=== PATIENT | male | born 1950 | race African-American/Black ===

== ENCOUNTER 2017-03-11 09:32 | Observation (INO) | payer MEDICARE, MEDICAID ==
[~2017-03-11] VITALS: Ht 190.5 cm; Wt 97.5 kg
[2017-03-11 09:51] VITALS: BP 176/105
[2017-03-11] MEDS ORDERED: Famotidine 20 MG/ 2ML VIAL IVP ONE (10:15)
[2017-03-11] MEDS ORDERED: Nulytely 4L ORAL ONE (10:15)
[2017-03-11 10:36] VITALS: BP 123/77
[2017-03-11] MEDS ORDERED: NKM (10:46)
[2017-03-11 10:49] LABS: BASOPHILS % (AUTO) 0.9 % (0.0-2.0); EOSINOPHILS % (AUTO) 0.8 % (0.0-3.0); LYMPHOCYTES % (AUTO) 19.7 % (20.0-45.0); MEAN CORPUSCULAR HEMOGLOBIN 30.1 PG (27.0-31.0); MEAN CORPUSCULAR HGB CONC 33.5 G/DL (32.0-36.0); MEAN CORPUSCULAR VOLUME 90 FL (80-99); MEAN PLATELET VOLUME 9.1 FL (6.5-10.1); NEUTROPHILS % (AUTO) 70.7 % (45.0-75.0); PLATELET COUNT 258 K/UL (150-450); RED BLOOD COUNT 4.25 M/UL (4.70-6.10); RED CELL DISTRIBUTION WIDTH 11.7 % (11.6-14.8); WHITE BLOOD COUNT 5.8 K/UL (4.8-10.8)
[2017-03-11 10:56] LABS: APPEARANCE,URINE CLEAR; KETONES,URINE NEGATIVE (NEGATIVE); LEUKOCYTE ESTERASE ,URINE NEGATIVE (NEGATIVE); NITRITE,URINE NEGATIVE (NEGATIVE); PH,URINE 7 (4.5-8.0); PROTEIN,URINE NEGATIVE (NEGATIVE); UROBILINOGEN,URINE NORMAL MG/DL (0.0-1.0)
[2017-03-11 10:59] LABS: ALANINE AMINOTRANSFERASE 16 U/L (3-41); ALBUMIN/GLOBULIN RATIO 1.1 (1.0-2.7); ANION GAP 11 (5-15); ASPARTATE AMINO TRANSFERASE 26 U/L (5-40); CALCIUM 10.1 mg/dL (8.6-10.2); CARBON DIOXIDE 25 mEQ/L (20-30); CHLORIDE 104 mEQ/L (98-107); CREATININE 0.8 mg/dL (0.7-1.2); GLOMERULAR FILTRATION RATE > 60 mL/min (>60); HEMOLYSIS 1; LIPASE 10 U/L (< 60); POTASSIUM 3.8 mEQ/L (3.4-4.9); SODIUM 140 mEQ/L (135-145); TOTAL PROTEIN 8.2 g/dL (6.6-8.7)
[2017-03-11 11:02] LABS: TROPONIN I < 0.30 ng/mL (<=0.30)
[2017-03-11] MEDS ORDERED: Morphine Sulfate 4mg/ml Inj IVP ONE (12:45)
[2017-03-11] MEDS ORDERED: MYRBETRIQ25 MG PO (13:03)
[2017-03-11] MEDS ORDERED: METOPROLOL SUCC50 MG ORAL (13:03)
[2017-03-11] MEDS ORDERED: MOVANTIK25 MG PO (13:03)
[2017-03-11] MEDS ORDERED: BISACODYL5 MG ORAL (13:03)
[2017-03-11] MEDS ORDERED: MOVIPREP POWDE1 EACH PO (13:03)
[2017-03-11] MEDS ORDERED: EVZIO2 MG/0.4 M IJ (13:03)
[2017-03-11] MEDS ORDERED: IBUPROFEN600 MG ORAL (13:03)
[2017-03-11] MEDS ORDERED: DIOVAN320 MG ORAL (13:03)
[2017-03-11] MEDS ORDERED: ATORVASTATIN CA20 MG ORAL (13:03)
[2017-03-11] MEDS ORDERED: CIALIS5 MG PO (13:03)
[2017-03-11] MEDS ORDERED: TAMSULOSIN HCL0.4 MG ORAL (13:03)
[2017-03-11] MEDS ORDERED: PAMELOR25 MG ORAL (13:03)
[2017-03-11] MEDS ORDERED: OXYCODONE HCL30 MG ORAL (13:03)
[2017-03-11 13:19] VITALS: BP 141/84
--- NOTE | 2017-03-11 13:23 | Emergency Room Report ---
History of Present Illness General Chief Complaint: Pain Source: Patient Present Illness HPI Patient is a 66-year-old male who presented after increased abdominal pain. The patient had recently been seen by GI was referred to the hospital for further evaluation.The patient gradual onset of symptoms. Patient currently takes pain medication chronically. He reported having worsening pain. Pain was sharp in nature. The patient had previously been scheduled for operation GI procedure. Allergies: Coded Allergies: No Known Allergies (Unverified , 02/25/17) Patient History Past Medical History: see triage record Reviewed Nursing Documentation: PMH: Agreed, PSxH: Agreed Nursing Documentation-PMH Past Medical History: No History, Except For Hx Cardiac Problems: No - spinal surgery /left ankle and foot surgery and abd surgery Hx Hypertension: Yes Hx COPD: No - bronchitis Review of Systems All Other Systems: negative except mentioned in HPI Physical Exam Vital Signs Date Time Temp Pulse Resp B/P (MAP) Pulse Ox O2 Delivery O2 Flow Rate FiO2 03/11/17 09:51 97.2 81 12 176/105 94 Room Air Sp02 EP Interpretation: reviewed, normal General Appearance: normal inspection, well appearing, no apparent distress, alert, GCS 15 Head: atraumatic ENT: normal ENT inspection, hearing grossly normal, normal voice Neck: normal inspection, full range of motion, supple, no bony tend Respiratory: normal inspection, lungs clear, normal breath sounds, no respiratory distress, no retraction, no wheezing Cardiovascular #1: regular rate, rhythm, no edema Gastrointestinal: normal inspection, normal bowel sounds, non tender, soft, no guarding, no hernia Genitourinary: no CVA tenderness Musculoskeletal: normal inspection, back normal, normal range of motion Neurologic: normal inspection, alert, oriented x3, responsive, drawing in machine tender helper III-XII nml as tested, speech normal Psychiatric: normal inspection, judgement/insight normal, mood/affect normal Skin: normal inspection, normal color, no rash Medical Decision Making Diagnostic Impression: Primary Impression: Abdominal pain Additional Impression: Intractable abdominal pain ER Course Patient presented for abdominal pain. Differential diagnoses included ischemic bowel, appendicitis, perforated viscus, abdominal aortic aneurysm, inferior myocardial infarction, viral gastroenteritis Because of complexity of patient's case laboratory testing and imaging studies were ordered. The patient was noted to have evidence of anemia. Patient was discussed with Dr. Wild for GI consult. Dr. Jarvis Caballero was contacted for inpatient management due to severity of abdominal pain patient was given IV morphine. Labs Test 03/11/17 10:20 White Blood Count 5.8 K/UL (4.8-10.8) Red Blood Count 4.25 M/UL (4.70-6.10) Hemoglobin 12.8 G/DL (14.2-18.0) Hematocrit 38.1 % (42.0-52.0) Mean Corpuscular Volume 90 FL (80-99) Mean Corpuscular Hemoglobin 30.1 PG (27.0-31.0) Mean Corpuscular Hemoglobin Concent 33.5 G/DL (32.0-36.0) Red Cell Distribution Width 11.7 % (11.6-14.8) Platelet Count 258 K/UL (150-450) Mean Platelet Volume 9.1 FL (6.5-10.1) Neutrophils (%) (Auto) 70.7 % (45.0-75.0) Lymphocytes (%) (Auto) 19.7 % (20.0-45.0) Monocytes (%) (Auto) 8.0 % (1.0-10.0) Eosinophils (%) (Auto) 0.8 % (0.0-3.0) Basophils (%) (Auto) 0.9 % (0.0-2.0) Urine Color Pale yellow Urine Appearance Clear Urine pH 7 (4.5-8.0) Urine Specific [place] 1.010 (1.005-1.035) Urine Protein Negative (NEGATIVE) Urine Glucose (UA) Negative (NEGATIVE) Urine Ketones Negative (NEGATIVE) Urine Occult Blood Negative (NEGATIVE) Urine Nitrite Negative (NEGATIVE) Urine Bilirubin Negative (NEGATIVE) Urine Urobilinogen Normal MG/DL (0.0-1.0) Urine Leukocyte Esterase Negative (NEGATIVE) Sodium Level 140 mEQ/L (135-145) Potassium Level 3.8 mEQ/L (3.4-4.9) Chloride Level 104 mEQ/L (98-107) Carbon Dioxide Level 25 mEQ/L (20-30) Anion Gap 11 (5-15) Blood Urea Nitrogen 8 mg/dL (7-23) Creatinine 0.8 mg/dL (0.7-1.2) Estimat Glomerular Filtration Rate > 60 mL/min (>60) Glucose Level 107 mg/dL (74-106) Calcium Level 10.1 mg/dL (8.6-10.2) Total Bilirubin 0.4 mg/dL (0.0-1.2) Aspartate Amino Transf (AST/SGOT) 26 U/L (5-40) Alanine Aminotransferase (ALT/SGPT) 16 U/L (3-41) Alkaline Phosphatase 71 U/L (40-129) Troponin I < 0.30 ng/mL (<=0.30) Total Protein 8.2 g/dL (6.6-8.7) Albumin 4.4 g/dL (3.5-5.2) Globulin 3.8 g/dL Albumin/Globulin Ratio 1.1 (1.0-2.7) Lipase 10 U/L (< 60) Last Vital Signs Date Time Temp Pulse Resp B/P (MAP) Pulse Ox O2 Delivery O2 Flow Rate FiO2 03/11/17 13:19 97.2 71 18 141/84 96 Room Air Status: unchanged Disposition: ADMITTED INPATIENT Condition: Serious Referrals: CHEYENNE WILD (PCP) Declan Mckeon Mar 11, 2017 13:23
[2017-03-11] MEDS ORDERED: Morphine Sulfate 4mg/ml Inj IVP PRN ×2 (14:45→19:00)
[2017-03-11 16:00] VITALS: BP 150/93
[2017-03-11] MEDS: Metoprolol Succinate XL 50mg tab ORAL SCH (17:38)
--- NOTE | 2017-03-11 18:50 | History & Physical ---
History and Physical History & Physicial Dictated for Int Med-no. [id number]. SANTIAGO SILVERMAN Mar 11, 2017 18:50
[2017-03-11 19:56] LABS: BASOPHILS % (AUTO) 1.6 % (0.0-2.0); EOSINOPHILS % (AUTO) 1.1 % (0.0-3.0); LYMPHOCYTES % (AUTO) 28.4 % (20.0-45.0); MEAN CORPUSCULAR HEMOGLOBIN 31.2 PG (27.0-31.0); MEAN CORPUSCULAR HGB CONC 34.7 G/DL (32.0-36.0); MEAN CORPUSCULAR VOLUME 90 FL (80-99); MEAN PLATELET VOLUME 8.9 FL (6.5-10.1); MONOCYTES % (AUTO) 11.6 % (1.0-10.0); NEUTROPHILS % (AUTO) 57.4 % (45.0-75.0); PLATELET COUNT 223 K/UL (150-450); RED BLOOD COUNT 4.02 M/UL (4.70-6.10); RED CELL DISTRIBUTION WIDTH 11.7 % (11.6-14.8); WHITE BLOOD COUNT 6.5 K/UL (4.8-10.8)
[2017-03-11 20:00] VITALS: BP 160/94
[2017-03-11] MEDS: Tamsulosin 0.4mg cap ORAL SCH (20:26)
[2017-03-11 21:26] VITALS: BP 160/94
[2017-03-12] VITALS (13 sets, daily range): BP systolic 135–164; BP diastolic 82–108
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
[2017-03-12] MEDS ORDERED: Fleet's Enema 133ml RECTAL ONE (06:00)
[2017-03-12 07:43] LABS: BASOPHILS % (AUTO) 1.3 % (0.0-2.0); EOSINOPHILS % (AUTO) 1.5 % (0.0-3.0); MEAN CORPUSCULAR HEMOGLOBIN 30.5 PG (27.0-31.0); MEAN CORPUSCULAR HGB CONC 33.3 G/DL (32.0-36.0); MEAN CORPUSCULAR VOLUME 92 FL (80-99); MEAN PLATELET VOLUME 8.6 FL (6.5-10.1); MONOCYTES % (AUTO) 8.6 % (1.0-10.0); NEUTROPHILS % (AUTO) 57.7 % (45.0-75.0); PLATELET COUNT 246 K/UL (150-450); RED BLOOD COUNT 4.18 M/UL (4.70-6.10); RED CELL DISTRIBUTION WIDTH 11.9 % (11.6-14.8)
[2017-03-12 08:05] LABS: INR 1.1 (0.9-1.1)
--- NOTE | 2017-03-12 08:22 | Anethesia Preoperative Eval ---
Anesthesia Pre-op PMH/ROS General Date of Evaluation: Mar 12, 2017 Time of Evaluation: 08:19 Anesthesiologist: anahi ASA Score: ASA 3 Mallampati Score Class I : Soft palate, uvula, fauces, pillars visible Class II: Soft palate, uvula, fauces visible Class III: Soft palate, base of uvula visible Class IV: Only hard plate visible Mallampati Classification: Class II Surgeon: rubi Diagnosis: abdominal pain Surgical Procedure: egd/colonoscopy Anesthesia History: none Social History: smoking - former Family History: no anesthesia problems Allergies: Coded Allergies: No Known Allergies (Unverified , 02/25/17) Medications: see eMAR Past Medical History Cardiovascular: Reports: HTN Pulmonary: Reports: COPD PSxH Narrative: spinal sx, lft ankle and foot sx, abdominal sx, Anesthesia Pre-op Phys. Exam Physician Exam Last Vital Signs Date Time Temp Pulse Resp B/P (MAP) Pulse Ox O2 Delivery O2 Flow Rate FiO2 03/12/17 04:50 97.7 62 20 142/82 95 Room Air Constitutional: NAD Neurologic: CN 2-12 intact Cardiovascular: RRR Respiratory: CTA Gastrointestinal: S/NT/ND Airway Exam Mallampati Score: Class II MO: full Neck: supple TMD: 2fb ROM: full Teeth: missing Anesthesia Pre-op A/P Labs Hematology Test 03/11/17 10:20 03/11/17 19:38 03/12/17 04:45 White Blood Count 5.8 K/UL (4.8-10.8) 6.5 K/UL (4.8-10.8) 6.0 K/UL (4.8-10.8) Red Blood Count 4.25 M/UL (4.70-6.10) L 4.02 M/UL (4.70-6.10) L 4.18 M/UL (4.70-6.10) L Hemoglobin 12.8 G/DL (14.2-18.0) L 12.6 G/DL (14.2-18.0) L 12.7 G/DL (14.2-18.0) L Hematocrit 38.1 % (42.0-52.0) L 36.2 % (42.0-52.0) L 38.3 % (42.0-52.0) L Mean Corpuscular Volume 90 FL (80-99) 90 FL (80-99) 92 FL (80-99) Mean Corpuscular Hemoglobin 30.1 PG (27.0-31.0) 31.2 PG (27.0-31.0) H 30.5 PG (27.0-31.0) Mean Corpuscular Hemoglobin Concent 33.5 G/DL (32.0-36.0) 34.7 G/DL (32.0-36.0) 33.3 G/DL (32.0-36.0) Red Cell Distribution Width 11.7 % (11.6-14.8) 11.7 % (11.6-14.8) 11.9 % (11.6-14.8) Platelet Count 258 K/UL (150-450) 223 K/UL (150-450) 246 K/UL (150-450) Mean Platelet Volume 9.1 FL (6.5-10.1) 8.9 FL (6.5-10.1) 8.6 FL (6.5-10.1) Neutrophils (%) (Auto) 70.7 % (45.0-75.0) 57.4 % (45.0-75.0) 57.7 % (45.0-75.0) Lymphocytes (%) (Auto) 19.7 % (20.0-45.0) L 28.4 % (20.0-45.0) 31.0 % (20.0-45.0) Monocytes (%) (Auto) 8.0 % (1.0-10.0) 11.6 % (1.0-10.0) H 8.6 % (1.0-10.0) Eosinophils (%) (Auto) 0.8 % (0.0-3.0) 1.1 % (0.0-3.0) 1.5 % (0.0-3.0) Basophils (%) (Auto) 0.9 % (0.0-2.0) 1.6 % (0.0-2.0) 1.3 % (0.0-2.0) Coagulation Test 03/12/17 04:45 Prothrombin Time 11.0 SEC (9.30-11.50) Prothromb Time International Ratio 1.1 (0.9-1.1) Activated Partial Thromboplast Time 25 SEC (23-33) Chemistry Test 03/11/17 10:20 03/12/17 04:45 Sodium Level 140 mEQ/L (135-145) Pending Potassium Level 3.8 mEQ/L (3.4-4.9) Pending Chloride Level 104 mEQ/L (98-107) Pending Carbon Dioxide Level 25 mEQ/L (20-30) Pending Anion Gap 11 (5-15) Blood Urea Nitrogen 8 mg/dL (7-23) Pending Creatinine 0.8 mg/dL (0.7-1.2) Pending Estimat Glomerular Filtration Rate > 60 mL/min (>60) Pending Glucose Level 107 mg/dL (74-106) H Pending Calcium Level 10.1 mg/dL (8.6-10.2) Pending Total Bilirubin 0.4 mg/dL (0.0-1.2) Aspartate Amino Transf (AST/SGOT) 26 U/L (5-40) Alanine Aminotransferase (ALT/SGPT) 16 U/L (3-41) Alkaline Phosphatase 71 U/L (40-129) Troponin I < 0.30 ng/mL (<=0.30) Total Protein 8.2 g/dL (6.6-8.7) Albumin 4.4 g/dL (3.5-5.2) Globulin 3.8 g/dL Albumin/Globulin Ratio 1.1 (1.0-2.7) Lipase 10 U/L (< 60) Risk Assessment & Plan Assessment: asa3 Plan: mac Status Change Before Surgery: No Pre-Antibiotics Drug: ANGELLA Varela Mar 12, 2017 08:22
[2017-03-12 08:35] LABS: ANION GAP 16 (5-15); CALCIUM 9.8 mg/dL (8.6-10.2); CARBON DIOXIDE 23 mEQ/L (20-30); CHLORIDE 105 mEQ/L (98-107); CREATININE 0.8 mg/dL (0.7-1.2); GLOMERULAR FILTRATION RATE > 60 mL/min (>60); HEMOLYSIS 98; POTASSIUM 4.3 mEQ/L (3.4-4.9); SODIUM 144 mEQ/L (135-145)
[2017-03-12] MEDS ORDERED: NS 550ML IV ONE (08:45)
[2017-03-12] MEDS ORDERED: Glycopyrrolate 0.2mg/ml 1ml Vial ONE (09:00)
[2017-03-12] MEDS ORDERED: Propofol 200mg/20ml IV ONE (09:00)
[2017-03-12] MEDS ORDERED: Metoprolol Succinate XL 50mg tab ORAL SCH ×2 (09:00)
[2017-03-12] MEDS ORDERED: Lidocaine 1% MPF 10mg/ml 5ml ONE (09:00)
[2017-03-12] MEDS ORDERED: Hydromorphone 0.5mg/0.5ml inj IVP PRN (09:15)
[2017-03-12] MEDS ORDERED: DiphenhydrAMINE 50mg/ml Inj IVP PRN (09:15)
[2017-03-12] MEDS ORDERED: Midazolam 2mg/2ml Inj IVP PRN (09:15)
[2017-03-12] MEDS ORDERED: Atropine Inj 1mg/10ml Syr IV PRN (09:15)
--- NOTE | 2017-03-12 09:25 | Pre-Procedure Note/Attestation ---
Pre-Procedure Note/Attestation Complete Prior to Procedure Planned Procedure: not applicable Procedure Narrative: EGD/Colon Indications for Procedure Pre-Operative Diagnosis: abd pain, anemia, cologard (+), Attestation I attest that I discussed the nature of the procedure; its benefits; risks and complications; and alternatives (and the risks and benefits of such alternatives ), prior to the procedure, with the patient (or the patient's legal rental representative). I attest that, if there was a reasonable possibility of needing a blood transfusion, the patient (or the patient's legal rental representative) was given the [facility] standardized written summary, pursuant to the [place] Blood Safety Act ([place] Health and Safety Code # 1645, as amended). I attest that I re-evaluated the patient just prior to the surgery and that there has been no change in the patient's H&P, except as documented below: CHEYENNE RAMOS Mar 12, 2017 09:24
--- NOTE | 2017-03-12 10:48 | Endoscopy Procedure Note ---
Endoscopy Procedure Note Indication for Procedure: abd pain, cologard (+) Procedures Performed: EGD, colonoscopy Operative Findings/Diagnosis: erosive duodenitis, colon polyps Specimen: yes Pt Tolerated Procedure Well: Yes Estimated Blood Loss: none Anesthesiologist: Britt Anesthesia: moderate sedation Medication Given: see anesthesia record Implant(s) used?: No 50 yrs or older w/o bx or poly: No 10yrs. F/U not recommended: No If not recommended, why?: Above average risk 10 yrs. F/U needed: No 18 years or older w/prev. colo: Yes <3yrs. since last colonoscopy: Yes Med reason:<3 yrs.: CHEYENNE RAMOS Mar 12, 2017 10:48
--- NOTE | 2017-03-12 10:49 | Brief Operative Note ---
Immediate Post Operative Note Operative Note Chief Complaint: abd pain, Cologard (+) Pre-op Diagnosis: abd pain, anemia, cologard (+), Procedure: E/C Post-op Diagnosis: duodenitis, colon polyps Surgeon: rubi Anesthesiologist: Vj lake Specimen: yes Complications: none Condition: stable Fluids: see anesth Estimated Blood Loss: none Drains: none Implant(s) used?: No CHEYENNE RAMOS Mar 12, 2017 10:49
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
[2017-03-12] MEDS ORDERED: fentaNYL 100 mcg/2 mL IV ONE (11:00)
[2017-03-12] MEDS ORDERED: Hydromorphone 0.5mg/0.5ml inj ONE (11:00)
[2017-03-12] MEDS ORDERED: Midazolam 2mg/2ml Inj ONE (11:00)
--- NOTE | 2017-03-12 11:06 | Immediate Post-Op Evaluation ---
Immediate Post-Op Evalulation Immediate Post-Op Evalulation Procedure: egd/colonocopy Date of Evaluation: Mar 12, 2017 Time of Evaluation: 11:04 IV Fluids: 650ml 0.9ns Blood Products: none Estimated Blood Loss: negligible Blood Pressure Systolic: 144 Blood Pressure Diastolic: 89 Pulse Rate: 84 Respiratory Rate: 18 O2 Sat by Pulse Oximetry: 100 Temperature (Fahrenheit): 97.0 Pain Score (1-10): 5 Nausea: No Vomiting: No Complications none Patient Status: awake, reacts, patent Hydration Status: adequate Drug: ANGELLA Varela Mar 12, 2017 11:06
--- NOTE | 2017-03-12 11:07 | 48 Hour Post Anesthesia Eval ---
Post Anesthesia Evaluation Procedure: egd/colonocopy Date of Evaluation: Mar 12, 2017 Time of Evaluation: 11:06 Blood Pressure Systolic: 144 0: 88 Pulse Rate: 84 Respiratory Rate: 18 Temperature (Fahrenheit): 97.0 O2 Sat by Pulse Oximetry: 100 Airway: patent Nausea: No Vomiting: No Pain Intensity: 5 Hydration Status: adequate Cardiopulmonary Status: stable Mental Status/LOC: patient returned to baseline Post-Anesthesia Complications: none Follow-up care needed: N/A ANGELLA WILLIS Mar 12, 2017 11:07
[2017-03-12] MEDS ORDERED: fentaNYL 100 mcg/2 mL IV PRN (11:22)
[2017-03-12] MEDS: Irbesartan 150mg tablet ORAL SCH (12:04)
[2017-03-12] MEDS: Metoprolol Succinate XL 50mg tab ORAL SCH (12:05)
[2017-03-12] MEDS: Nortriptyline 25mg cap ORAL SCH (12:05)
--- NOTE | 2017-03-12 14:36 | Internal Med Progress Note ---
Subjective Date of Service: Mar 12, 2017 Physician Name Jarvis Silverman Attending Physician Jarvis Silverman Current Medications Medications (Trade) Dose Ordered Sig/Viri Route PRN Reason Start Time Stop Time Status Last Admin Dose Admin Atorvastatin Calcium (Lipitor) 10 mg BEDTIME ORAL 03/11/17 21:00 04/10/17 20:59 03/11/17 20:26 Dextrose (Dextrose 50%) STAT PRN IV Hypoglycemia 03/11/17 14:45 04/10/17 14:44 Fentanyl Citrate (Sublimaze 100 mcg/2 mL) 50 mcg Q5M PRN IV pain 03/12/17 11:22 03/12/17 11:25 Irbesartan (Avapro) 150 mg DAILY ORAL 03/12/17 09:00 04/11/17 08:59 03/12/17 12:04 Metoprolol Succinate (Toprol XL) 50 mg DAILY ORAL 03/11/17 17:00 04/10/17 16:59 03/12/17 12:05 Morphine Sulfate (Morphine Sulfate) 4 mg Q3H PRN IVP Severe Pain (Pain Scale 7-10) 03/11/17 19:00 03/18/17 18:59 Nortriptyline HCl (Pamelor) 25 mg DAILY ORAL 03/12/17 09:00 04/11/17 08:59 03/12/17 12:05 Pantoprazole (Protonix) 40 mg DAILY ORAL 03/12/17 11:00 04/11/17 10:59 03/12/17 12:03 Sodium Chloride 1,000 ml @ 75 mls/hr [id number] IV 03/11/17 15:00 04/10/17 14:59 03/11/17 16:10 Tamsulosin HCl (Flomax) 0.4 mg BEDTIME ORAL 03/11/17 21:00 04/10/17 20:59 03/11/17 20:26 Allergies: Coded Allergies: No Known Allergies (Unverified , 02/25/17) ROS Limited/Unobtainable: No Constitutional: Reports: no symptoms HEENT: Reports: no symptoms Cardiovascular: Reports: no symptoms Respiratory: Reports: no symptoms Genitourinary: Reports: no symptoms Neurologic/Psychiatric: Reports: no symptoms Subjective 66 YO M admitted with abdominal pain and rectal bleeding. S/P colonoscopy and endoscopy on 03/12/17 Objective Last Vital Signs Date Time Temp Pulse Resp B/P (MAP) Pulse Ox O2 Delivery O2 Flow Rate FiO2 03/12/17 12:05 84 163/93 03/12/17 11:57 97.7 20 99 Nasal Cannula 2.0 General Appearance: WD/WN, no apparent distress, alert EENT: PERRL/EOMI, normal ENT inspection, TMs normal Neck: non-tender, normal alignment, supple, normal inspection Cardiovascular: normal peripheral pulses, normal rate, regular rhythm, no gallop/murmur, no JVD Respiratory/Chest: chest wall non-tender, lungs clear, normal breath sounds, no respiratory distress, no accessory muscle use Abdomen: soft, no organomegaly, no mass, decreased bowel sounds Extremities: normal range of motion Neurologic: robotics testing technician II-XII grossly normal, no motor/sensory deficits Skin: normal pigmentation, warm/dry Laboratory Tests Test 03/11/17 19:38 03/12/17 04:45 White Blood Count 6.5 K/UL (4.8-10.8) 6.0 K/UL (4.8-10.8) Red Blood Count 4.02 M/UL (4.70-6.10) L 4.18 M/UL (4.70-6.10) L Hemoglobin 12.6 G/DL (14.2-18.0) L 12.7 G/DL (14.2-18.0) L Hematocrit 36.2 % (42.0-52.0) L 38.3 % (42.0-52.0) L Mean Corpuscular Volume 90 FL (80-99) 92 FL (80-99) Mean Corpuscular Hemoglobin 31.2 PG (27.0-31.0) H 30.5 PG (27.0-31.0) Mean Corpuscular Hemoglobin Concent 34.7 G/DL (32.0-36.0) 33.3 G/DL (32.0-36.0) Red Cell Distribution Width 11.7 % (11.6-14.8) 11.9 % (11.6-14.8) Platelet Count 223 K/UL (150-450) 246 K/UL (150-450) Mean Platelet Volume 8.9 FL (6.5-10.1) 8.6 FL (6.5-10.1) Neutrophils (%) (Auto) 57.4 % (45.0-75.0) 57.7 % (45.0-75.0) Lymphocytes (%) (Auto) 28.4 % (20.0-45.0) 31.0 % (20.0-45.0) Monocytes (%) (Auto) 11.6 % (1.0-10.0) H 8.6 % (1.0-10.0) Eosinophils (%) (Auto) 1.1 % (0.0-3.0) 1.5 % (0.0-3.0) Basophils (%) (Auto) 1.6 % (0.0-2.0) 1.3 % (0.0-2.0) Prothrombin Time 11.0 SEC (9.30-11.50) Prothromb Time International Ratio 1.1 (0.9-1.1) Activated Partial Thromboplast Time 25 SEC (23-33) Sodium Level 144 mEQ/L (135-145) Potassium Level 4.3 mEQ/L (3.4-4.9) Chloride Level 105 mEQ/L (98-107) Carbon Dioxide Level 23 mEQ/L (20-30) Anion Gap 16 (5-15) H Blood Urea Nitrogen 9 mg/dL (7-23) Creatinine 0.8 mg/dL (0.7-1.2) Estimat Glomerular Filtration Rate > 60 mL/min (>60) Glucose Level 94 mg/dL (74-106) Calcium Level 9.8 mg/dL (8.6-10.2) Intake and Output 03/12/17 03/13/17 19:00 07:00 Intake Total 650 ml Output Total 0 ml Balance 650 ml IV Total 650 ml Estimated Blood Loss 0 ml # Bowel Movements 4 Assessment/Plan Problem List: (1) Acute duodenitis Assessment & Plan: Erosive; see GI note. Continue protonix (2) Rectal bleeding (3) Hypertension Assessment & Plan: Cont toprolol and avapro (4) Hypocholesteremia (5) Chronic pain syndrome Assessment & Plan: Cont IV morphine (6) BPH (benign prostatic hyperplasia) (7) Abdominal pain Assessment & Plan: Cont IV morphine. Status: stable JARVIS SILVERMAN Mar 12, 2017 14:36
[2017-03-12 20:14] LABS: BASOPHILS % (AUTO) 1.1 % (0.0-2.0); EOSINOPHILS % (AUTO) 1.2 % (0.0-3.0); LYMPHOCYTES % (AUTO) 30.4 % (20.0-45.0); MEAN CORPUSCULAR HEMOGLOBIN 30.2 PG (27.0-31.0); MEAN CORPUSCULAR HGB CONC 33.4 G/DL (32.0-36.0); MEAN CORPUSCULAR VOLUME 90 FL (80-99); MEAN PLATELET VOLUME 9.2 FL (6.5-10.1); MONOCYTES % (AUTO) 10.8 % (1.0-10.0); NEUTROPHILS % (AUTO) 56.5 % (45.0-75.0); PLATELET COUNT 212 K/UL (150-450); RED BLOOD COUNT 4.11 M/UL (4.70-6.10); RED CELL DISTRIBUTION WIDTH 11.8 % (11.6-14.8); WHITE BLOOD COUNT 7.2 K/UL (4.8-10.8)
[2017-03-12] MEDS: Tamsulosin 0.4mg cap ORAL SCH (22:27)
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
--- NOTE | 2017-03-12 23:15 | Procedure Note ---
DATE OF PROCEDURE: 03/12/2017 GASTROENTEROLOGY PROCEDURE REPORT Procedure: Upper gastrointestinal endoscopy with biopsy as well as colonoscopy with biopsy. SURGEON: Bentley Wild M.D. Anesthesia: Please see the separate anesthesiologist notes for details. Pre-Endoscopic Diagnoses: Abdominal pain and Cologuard positive stools. POST-ENDOSCOPIC DIAGNOSES: 1. Erosive duodenitis, status post biopsy. 2. Status post random biopsy of the antrum and the lower esophagus. 3. Multiple diminutive colonic polyps, which were removed as described below. 4. Difficult colonoscopy due to adhesions and twisting of the bowel. Description Of Procedure: The procedure its risks, indications, alternatives, and possible complications including, but not limited to, bleeding, infection, perforation, , and anesthesia complications were explained to the patient and an informed consent was obtained. The patient was then sedated in the left lateral decubitus position. A diagnostic upper endoscope was introduced through the oropharynx and advanced to the duodenum. The endoscope was then gradually withdrawn and the mucosa was examined carefully. Examination of the upper gastrointestinal mucosa revealed patchy erosive duodenitis in the second portion and less so in the first portion of duodenum. Biopsies were sent to pathology for review. The stomach lining was normal and the antrum was biopsied. The lower esophageal lining was normal and the lower esophagus was biopsied. The endoscope was removed. The rectal exam was done and the colonoscope was introduced into the rectum and advanced to the cecum. The cecum was identified by the appearance of the ileocecal valve. The colonoscope was then gradually withdrawn and the mucosa was examined carefully. Examination of colonic mucosa revealed a very twisted and scarred colonic contour making colon examination somewhat difficult. Evaluation of colonic mucosa revealed diminutive polyps in the ascending colon, descending colon, and sigmoid colon, all of which were removed with a simple cold biopsy forceps without complications. The colonoscope was removed and the patient was sent to recovery in good condition. COMPLICATIONS: None. RECOMMENDATIONS: 1. Resume oral diet. 2. Check and treat Helicobacter pylori if positive. 3. Outpatient followup. Thank you for asking me to participate in the care of this patient. Bentley Wild M.D. DR: JOHNNA JOB#: [id number] CC: Man Driver M.D.; Fax#: [phone]
[2017-03-13] VITALS: BP 142/60
[2017-03-13 08:24] VITALS: BP 141/88
[2017-03-13] MEDS ORDERED: PROTONIX40 MG ORAL (08:34)
[2017-03-13 08:49] VITALS: BP 141/88
[2017-03-13] MEDS: Nortriptyline 25mg cap ORAL SCH (08:49)
[2017-03-13] MEDS: Metoprolol Succinate XL 50mg tab ORAL SCH (08:49)
[2017-03-13] MEDS: Irbesartan 150mg tablet ORAL SCH (08:49)
--- NOTE | 2017-03-13 09:02 | Procedure Note ---
DATE OF PROCEDURE: 03/12/2017 Procedure: Upper gastrointestinal endoscopy with biopsy as well as colonoscopy with biopsy. SURGEON: Bentley Wild M.D. Anesthesia: Please see the separate anesthesiologist notes for details. PRE-ENDOSCOPIC DIAGNOSES: 1. Epigastric abdominal pain. 2. Cologuard positive stools. POST-ENDOSCOPIC DIAGNOSES: 1. Erosive duodenitis, status post biopsy. 2. Multiple colonic polyps, status post biopsy and removal. Description Of Procedure: The procedure, its risks, indications, alternatives, and possible complications including, but not limited to, bleeding, infection, perforation, , and anesthesia complications were explained to the patient and informed consent was obtained. The patient has been sedated and a diagnostic upper endoscope was introduced through the oropharynx and advanced to the duodenum. The duodenum was noted to have erosive gastroduodenitis. Biopsies of the duodenum and the antrum were sent to pathology for review. The endoscope was removed. The colonoscope was introduced in the rectum and advanced to the cecum. The cecum was identified by the appearance of the ileocecal valve. The colonoscope was then gradually withdrawn and the mucosa examined carefully. Multiple diminutive polyps were seen and removed with a simple biopsy forceps. Retroflexed view of the rectum was unremarkable. The colonoscope was removed. The patient was sent to recovery in good condition. COMPLICATIONS: None. RECOMMENDATIONS: 1. Resume oral diet. 2. Follow up biopsy results. 3. Check and treat Helicobacter pylori, if positive. Thank you for asking me to participate in the care of this patient. Bentley Wild M.D. DR: NELLY JOB#: [id number] CC:
== END 2017-03-13 09:17 | disposition home or self-care (01) ==
LOC: EMR 10:33 → 4E 10:38 → INTOOBSV 10:38 → EDBEDREQ 10:55
DX: K29.80 Duodenitis without bleeding (principal); K29.50 Unspecified chronic gastritis without bleeding; R10.9 Unspecified abdominal pain; D12.2 Benign neoplasm of ascending colon; K63.5 Polyp of colon; I10 Essential (primary) hypertension; D64.9 Anemia, unspecified; K62.5 Hemorrhage of anus and rectum; E78.00 Pure hypercholesterolemia, unspecified; G89.4 Chronic pain syndrome; N40.0 Benign prostatic hyperplasia without lower urinary tract symptoms; G82.20 Paraplegia, unspecified; Z99.3 Dependence on wheelchair; J44.9 Chronic obstructive pulmonary disease, unspecified; Z87.891 Personal history of nicotine dependence; K21.0 Gastro-esophageal reflux disease with esophagitis
CPT/HCPCS: 36415 ×2; 43239; 45380; 80048; 80053; 81003; 83690; 84484; 85025 ×2; 85610; 85730; 96367; 96368; 96374; 96523 ×2; 99285; C8957; G0378 ×2; J1170; J2250; J2270; J2704; J3010; J7040; S0028; 94003; 94150; 96361; 96366; 96376

== ENCOUNTER 2017-04-06 12:31 | Outpatient (CLI) | payer MEDICARE, MEDICAID ==
[~2017-04-06 12:31] MED LIST: ATORVASTATIN CA20 MG ORAL; BISACODYL5 MG ORAL; CIALIS5 MG PO; DIOVAN320 MG ORAL; EVZIO2 MG/0.4 M IJ; IBUPROFEN600 MG ORAL; METOPROLOL SUCC50 MG ORAL; MOVANTIK25 MG PO; MOVIPREP POWDE1 EACH PO; MYRBETRIQ25 MG PO; NKM; OXYCODONE HCL30 MG ORAL; PAMELOR25 MG ORAL; PROTONIX40 MG ORAL; TAMSULOSIN HCL0.4 MG ORAL
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
== END 2017-04-06 14:31 | disposition home or self-care (01) ==
LOC: CAT 12:31
DX: R10.9 Unspecified abdominal pain (principal); K80.20 Calculus of gallbladder without cholecystitis without obstruction; N28.1 Cyst of kidney, acquired
CPT/HCPCS: 74177; Q9967